=== PATIENT | male | born 1945 | race Caucasian/White ===

== ENCOUNTER → 2024-03-05 | Outpatient (CLI) | payer MEDICARE, SELFPAY | END | disposition home or self-care (01) | PROVIDERS: PCP Specialist; Referring Provider Specialist; Visit Provider Specialist | DX: M54.50 Low back pain, unspecified (principal) ==

== ENCOUNTER → 2024-07-20 | Outpatient (CLI) | payer MEDICARE, SELFPAY ==
--- NOTE | 2024-07-20 12:18 | XR_ITS ---
Exam: MRI knee without contrast, left complete Date and time of exam: July 12, 2024 1358 hours INDICATIONS: Generalized knee pain beginning 4 months ago Technique: Multiple axial, coronal, and sagittal sections on the knee have been obtained. T2-Weighted sagittal, fat-suppressed images, TR 3,500, TE 62, T2 weighted coronal fat-saturated images, TR 3,500, TE 62 Proton density sagittal sections, TR 1800, TE 31. T-1 weighted coronal images, TR 524, TE 13.0 Findings: Medial meniscus anterior horn intact. Medial meniscus, body is intact. Posterior horn medial meniscus intact. Lateral meniscus anterior horn complex tears including vertical tear communicating superior articular surface sagittal image 18 Lateral meniscus, body is large horizontal linear tear Posterior horn lateral meniscus horizontal linear tear Anterior cruciate ligament moderate sprain. Posterior cruciate ligament appears intact. Knee effusion is small. Quadriceps and patellar tendons appear intact. There is no evidence of tendinosis. Inflammatory change or fracture of Hoffa's fat pad is not seen. Medial patellar facet demonstrates moderate thinning. Lateral patellar facet cartilage demonstrates moderate thinning. Trochlear cartilage demonstrates moderate thinning. Marrow signal adequate. Medial collateral ligament appears intact. No meniscocapsular separation is seen. Illiotibial band and fibular collateral ligament are intact. Biceps femoris tendons appear intact. Medial femoral condylar articular cartilage demonstrates moderate thinning. Lateral femoral condylar articular cartilage demonstratesmoderate thinning. Tibial plateau cartilage demonstrates moderate thinning. Impression: Extensive lateral meniscus tears Moderate sprain anterior cruciate ligament
--- NOTE | 2024-07-20 12:45 | XR_ITS ---
Examination: MRI lumbar spine without contrast Date and time of exam: July 20, 2024 1558 hours INDICATIONS: Low back pain beginning 2 months ago Technique: Multiple MRI axial and sagittal sections lumbar spine. Sagittal T2-weighted images, TR 3500, TE 118 T1 weighted transverse sections, TR 688 T8.5, T2-weighted sagittal sections T1 weighted sagittal sections TR 621, TE 30 T2 axial sections, TR 4, 190, TE 84. Findings: Transitional S1 vertebral body No lumbar fracture Advanced disc narrowing L3-L4, L4-L5, moderate disc narrowing L5-S1 No spondylolisthesis L5-S1 prominent left facet arthropathy 8 mm left foraminal disc bulge producing mild left L5 ganglionic compression L4-L5 small foraminal disc bulges but no ganglionic compression L3-L4 10 mm right subarticular disc protrusion indenting the ventral right margin thecal sac L2-L3 no disc protrusion L1-L2 no disc protrusion IMPRESSION: Advanced degenerative disc disease L3-L4, L4-L5 L5-S1 8 mm left foraminal disc bulge producing mild left L5 ganglionic compression L3-L4 2 mm right subarticular disc protrusion indenting the ventral right margin thecal sac
[2024-07-20 14:29] VITALS: PULSE 81; O2SAT 96
[2024-07-20 14:30] VITALS: PULSE 39; O2SAT 96
[2024-07-20 14:35] VITALS: PULSE 79; O2SAT 95
[2024-07-20 14:40] VITALS: PULSE 79; O2SAT 93
[2024-07-20 14:45] VITALS: PULSE 79; O2SAT 99
[2024-07-20 14:50] VITALS: PULSE 79; O2SAT 93
== END | disposition home or self-care (01) ==
LOC: SMRI 11:53
PROVIDERS: PCP Specialist; Referring Provider Specialist; Visit Provider Specialist
DX: M51.360 Other intervertebral disc degeneration, lumbar region with discogenic back pain only (principal); M51.26 Other intervertebral disc displacement, lumbar region; G95.20 Unspecified cord compression
CPT/HCPCS: 72148; 73721

== ENCOUNTER → 2025-01-11 | Outpatient (CLI) | payer MEDICARE, SELFPAY ==
[2025-01-11 11:57] LABS: Collection Type, Urine Clean Catch; RBC,Urine 0 /hpf (0-3)
[2025-01-11 12:15] LABS: Basophils # (Auto) 0.0 Thou/mm3 (0.0-0.2); Basophils % (Auto) 1 % (0-2.5); Eosinophils # (Auto) 0.0 Thou/mm3 (0.0-0.5); Eosinophils % (Auto) 1 % (0-10); Hematocrit 36.0 % (41.0-53.0); Hemoglobin 11.2 g/dL (13.5-16.0); Immature Granulocytes Auto 0.02 Thou/mm3 (0.00-0.00); Lymphocytes # (Auto) 0.9 Thou/mm3 (1.0-4.8); Lymphocytes % (Auto) 12 % (10-50); Mean Corpuscular HGB Conc 31.1 g/dl (31.0-37.0); Mean Corpuscular Hemoglobin 27.5 pg (25.0-35.0); Mean Corpuscular Volume 88 fL (80-100); Monocytes # (Auto) 0.4 Thou/mm3 (0.0-0.8); Monocytes % (Auto) 5 % (0-12); Neutrophils # (Auto) 6.0 Thou/mm3 (1.8-7.7); Neutrophils % (Auto) 82 % (37-80); Nucleated Red Blood Cell # 0.00 Thou/mm3 (0.00-0.00); Nucleated Red Blood Cell % 0 /100 WBC (0); Platelet Count 191 Thou/mm3 (140-440); RDW Standard Deviation 52.9 fL (35.1-43.9); Red Blood Count 4.08 Miln/mm3 (4.50-5.90); White Blood Count 7.3 Thou/mm3 (3.8-10.6)
[2025-01-11 12:23] LABS: Glucose Estimated Average 128 mg/dL (80-131); Hemoglobin A1C 6.1 % Hgb (4.8-6.0); Prostate Specific Antigen 1.07 ng/mL (0-4.00)
[2025-01-11 12:23] LABS: Creatinine MALB Rnd Ur 24 mg/dL (30-125); Microalbumin Creat Ratio 33 mg/gCrea (<30); Microalbumin, Random Urine 8 mg/L (0-300)
[2025-01-11 12:27] LABS: Alanine Aminotransferase 14 U/L (10-49); Albumin, Serum 4.6 gm/dL (3.4-4.8); Albumin/Globulin Ratio 2.6 (1.2-2.2); Alkaline Phosphatase 94 U/L (46-116); Anion Gap 9 (7-16); Aspartate Amino Transferase 23 U/L (0-34); BUN/Creatinine Ratio 9 Ratio (12-20); Bilirubin,Total 1.0 mg/dL (0.3-1.2); Blood Urea Nitrogen 13 mg/dL (9-23); Calcium 9.8 mg/dL (8.3-10.6); Calcium (Corrected) 9.8 mg/dL (8.5-10.1); Carbon Dioxide 28.8 mMol/L (20.0-31.0); Cardiac Risk Estimate 2.6 RATIO (4.0-6.7); Chloride 106 mMol/L (98-107); Cholesterol 128 mg/dL (132-200); Creatinine (Component) 1.4 mg/dL (0.6-1.3); Globulin 1.8 gm/dL (2.3-3.5); Glucose 70 mg/dL (74-106); HDL Cholesterol 49 mg/dL (40-60); LDL Cholesterol,Calculated 59 mg/dL (0-130); Osmolality,Calculated 284 (275-295); Potassium 4.0 mMol/L (3.4-5.1); Sodium 144 mMol/L (136-145); Thyroid Stimulating Hormone 1.71 uIU/mL (0.55-4.78); Total Protein 6.4 gm/dL (5.7-8.2); Triglycerides 101 mg/dL (30-150); Uric Acid 8.7 mg/dL (3.7-9.2); eGFR 51 See Note
[2025-01-11 12:35] LABS: Vitamin B12 429 pg/mL (211-911); Vitamin D 25 Hydroxy Total 39.6 ng/mL (7.3-40.2)
[2025-01-11 13:19] LABS: Bilirubin,Urine Negative (Negative); Blood,Urine Negative (Negative); Clarity,Urine Clear (Clear/Hazy); Color,Urine Colorless (Lt Yel-Yel); Glucose, Urine Negative (Negative); Ketones,Urine Negative (Negative); Leukocyte Esterase,Urine Negative (Negative); Nitrite,Urine Negative (Negative); PH,Urine 6.0 (5.0-7.0); Protein,Urine Negative (Neg - Trace); Specific Gravity,Urine 1.009 (1.001-1.035); Squamous Epithelial Cell,Urine < 1 /hpf (0-5); Urobilinogen,Urine Negative mg/dL (0.0-1.0); WBC,Urine < 1 /hpf (0-5)
== END | disposition home or self-care (01) ==
LOC: COPL 10:46
PROVIDERS: PCP Internal Medicine; Referring Provider Internal Medicine; Visit Provider Internal Medicine
DX: E11.22 Type 2 diabetes mellitus with diabetic chronic kidney disease (principal); I12.9 Hypertensive chronic kidney disease with stage 1 through stage 4 chronic kidney disease, or unspecified chronic kidney disease; N18.30 Chronic kidney disease, stage 3 unspecified; E78.5 Hyperlipidemia, unspecified; D51.9 Vitamin B12 deficiency anemia, unspecified; E55.9 Vitamin D deficiency, unspecified
CPT/HCPCS: 36415; 80053; 80061; 81001; 82043; 82306; 82570; 82607; 83036; 84153; 84443; 84550; 85025